=== PATIENT | female | born 1940 | race Caucasian/White ===

== ENCOUNTER 2016-11-20 11:03 | Inpatient (IN) | payer OTHER ==
[~2016-11-20] VITALS: Ht 162.6 cm; Wt 81.8 kg
[~2016-11-20 11:03] MED LIST: ALLOPURINOL100 MG PO; ASPIR 8181 M1 PO; ENDOCET 5-3251 EACH PO; ERGOCALCIF50000 UNIT PO; Ecotrin PO; LIPITOR10 MG PO; LOTENSIN20 MG PO; LOVENOX40 MG/0.4 SC; PREVACID15 MG PO; SENNA-TIME S T1 EACH PO; ZYLOPRIM100 MG PO; Zyloprim PO
[2016-11-20 12:02] LABS: BASOPHIL COUNT 0.1 K/uL (0-0.1); EOSINOPHIL (%) 1.9 % (0-5); EOSINOPHIL COUNT 0.2 K/uL (0-0.3); HEMATOCRIT 40.9 % (36.0-46.0); IMMATURE GRANULOCYTE (%) 0.5 % (0.0-0.7); IMMATURE GRANULOCYTE COUNT 0.1 K/uL; INSTRUMENT ABS NEUTROPHIL CT 6.3 K/uL; LYMPHOCYTE COUNT 3.2 K/uL (1.0-2.8); MCH 29.3 PG (29.0-34.0); MCHC 33.5 G/DL (30.0-36.0); MCV 87.6 FL (83-99); MEAN PLAT.VOLUME 12.2 uM^3 (9.5-12.4); MONOCYTE (%) 5.7 % (3-12); MONOCYTE COUNT 0.6 K/uL (0-0.8); NEUTROPHIL (%) 60.6 % (45-76); NEUTROPHIL COUNT 6.3 K/uL (1.8-6.4); PLATELET COUNT 246 K/uL (156-360); RBC DIS.WIDTH-CV 13.5 % (11.8-14.6); RBC DIS.WIDTH-SD 43.4 % (39-53); RED BLOOD COUNT 4.67 M/uL (3.80-5.20); WHITE BLOOD COUNT 10.4 K/uL (4.1-10.2)
[2016-11-20 12:10] LABS: CHLORIDE 108 mEq/L (99-109); POTASSIUM 3.6 mEq/L (3.7-5.4); SODIUM 142 mEq/L (136-147)
[2016-11-20 12:12] LABS: GLUCOSE 138 mg/dL (70-99)
[2016-11-20 12:13] LABS: ANION GAP 13 MEQ/L (2-14)
[2016-11-20 12:14] LABS: TOTAL BILIRUBIN 0.5 mg/dL (0.0-1.0)
[2016-11-20 12:16] LABS: ALKALINE PHOSPHATASE 85 IU/L (3-129); GFR ESTIMATE (CALCULATED) 36 mL/min/
[2016-11-20 12:17] LABS: UREA NITROGEN (BUN) 28 mg/dL (9-23)
[2016-11-20 12:19] LABS: LIPASE 64 U/L (1.0-51.0)
[2016-11-20 12:21] LABS: TROP-I INTERPRETATION NEGATIVE; TROPONIN-I < 0.01 ng/mL (0.0-0.30)
[2016-11-20] MEDS ORDERED: FLONASE16 G1 BOTH NARES (15:07)
[2016-11-20] MEDS ORDERED: ASPIR-LOW81 MG PO (15:07)
[2016-11-20 20:24] VITALS: BP 173/88
[2016-11-20 23:35] VITALS: BP 144/94
[2016-11-21] VITALS (12 sets, daily range): BP systolic 62–117; BP diastolic 37–88
[2016-11-21 00:17] LABS: ADD MIUA? YES; BILIRUBIN NEGATIVE; BLOOD NEGATIVE; COLOR AMBER ((YELLOW)); GLUCOSE (STRIP) NEGATIVE; KETONES NEGATIVE; LEUKOCYTES NEGATIVE; NITRITE NEGATIVE; PROTEIN (STRIP) 100; UROBILINOGEN 0.2 MG/DL (0.2-1.0)
[2016-11-21 00:30] LABS: BACTERIA RARE /HPF; EPITHELIAL CELLS RARE /HPF; MUCUS TRACE /LPF; RED BLOOD CELLS 0-5 /HPF (0-5); WHITE BLOOD CELLS 0-5 /HPF (0-5)
[2016-11-21 01:11] LABS: BASE EXCESS -7.3 mEq/L (-3 to +3); BICARBONATE 17.3 mEq/L (22-26); CARBOXY HGB 3.4 % (0-5); METHEMOGLOBIN 0.9 % (0-1.5); PCO2 32 mm Hg (35-45); PO2 60 mm Hg (80-100); pH 7.34 (7.35-7.45)
[2016-11-21 01:12] LABS: COMMENTS - BLOOD GASES A+C+; DEVICE NC; O2 FLOW 6 L/MIN; SITE RR; TOTAL RESP RATE 32 resp/min
[2016-11-21 01:34] LABS: MEAN PLAT.VOLUME 12.4 uM^3 (9.5-12.4); PLATELET COUNT 306 K/uL (156-360)
[2016-11-21 01:44] LABS: CHLORIDE 110 mEq/L (99-109); SODIUM 143 mEq/L (136-147)
[2016-11-21 01:45] LABS: POTASSIUM 4.8 mEq/L (3.7-5.4)
[2016-11-21 01:46] LABS: GLUCOSE 189 mg/dL (70-99)
[2016-11-21 01:47] LABS: ANION GAP 13 MEQ/L (2-14)
[2016-11-21 01:48] LABS: TOTAL BILIRUBIN 0.6 mg/dL (0.0-1.0)
[2016-11-21 01:49] LABS: ALKALINE PHOSPHATASE 84 IU/L (3-129)
[2016-11-21 01:50] LABS: GFR ESTIMATE (CALCULATED) 29 mL/min/; HEMATOCRIT 45.2 % (36.0-46.0); MCH 29.7 PG (29.0-34.0); RBC DIS.WIDTH-SD 45.8 % (39-53); RED BLOOD COUNT 5.02 M/uL (3.80-5.20)
[2016-11-21 01:51] LABS: UREA NITROGEN (BUN) 35 mg/dL (9-23)
[2016-11-21 01:53] LABS: WHITE BLOOD COUNT 30.3 K/uL (4.1-10.2)
[2016-11-21 05:00] LABS: METH RESISTANT S AUREUS PCR NEGATIVE (NEGATIVE)
[2016-11-21 05:08] LABS: PROBE CHECK PASS; SPECIMEN PROCESSING CONTROL PASS
[2016-11-21 08:56] LABS: BICARBONATE 18.4 mEq/L (22-26); CARBOXY HGB 1.6 % (0-5); METHEMOGLOBIN 2.1 % (0-1.5); PO2 49 mm Hg (80-100)
[2016-11-21 08:57] LABS: COMMENTS - BLOOD GASES A+C+; DEVICE 840; FI02 100 %; MECHANICAL RATE 20 resp/min; MODE A/C; PCO2 46 mm Hg (35-45); PEEP 15 CM/H20; SITE RR; TIDAL VOLUME 500 ML; TOTAL RESP RATE 20 resp/min; pH 7.21 (7.35-7.45)
[2016-11-21 11:23] LABS: BASE EXCESS -12.6 mEq/L (-3 to +3); BICARBONATE 14.5 mEq/L (22-26); CARBOXY HGB 0.8 % (0-5); METHEMOGLOBIN 1.5 % (0-1.5); PCO2 37 mm Hg (35-45); PO2 169 mm Hg (80-100)
[2016-11-21 11:24] LABS: COMMENTS - BLOOD GASES C+; DEVICE 840; FI02 100 %; MECHANICAL RATE 28 resp/min; MODE A/C; PEEP 20 CM/H20; SITE ALINE; TIDAL VOLUME 450 ML; TOTAL RESP RATE 28 resp/min
[2016-11-21 12:01] LABS: INTER. NORMALIZED RATIO 1.4; PROTHROMBIN TIME 15.3 SEC (10.2-12.9)
[2016-11-21 12:12] LABS: HEMATOCRIT 24.8 % (36.0-46.0); MCH 30.7 PG (29.0-34.0); MCHC 32.7 G/DL (30.0-36.0); MCV 93.9 FL (83-99); RBC DIS.WIDTH-CV 14.5 % (11.8-14.6); RBC DIS.WIDTH-SD 49.1 % (39-53); RED BLOOD COUNT 2.64 M/uL (3.80-5.20)
[2016-11-21 12:25] LABS: ALKALINE PHOSPHATASE 33 IU/L (3-129); ANION GAP 15 MEQ/L (2-14); CHLORIDE 116 MEQ/L (99-109); GFR ESTIMATE (CALCULATED) 39 mL/min/; GLUCOSE 271 mg/dL (70-99); LIPASE 85 U/L (1.0-51.0); SAMPLE HEMOLYSIS CHECK 0; SAMPLE ICTERIC CHECK 0; SAMPLE LIPEMIA CHECK 0; SODIUM 146 MEQ/L (136-147); TOTAL BILIRUBIN 0.5 MG/DL (0.0-1.0); UREA NITROGEN (BUN) 29 mg/dL (9-23)
[2016-11-21 12:26] LABS: POTASSIUM 3.6 MEQ/L (3.7-5.4)
[2016-11-21 12:30] LABS: BAND NEUTROPHILS 14.2 % (0-8.0); EOSINOPHIL ABS CT 0; INSTRUMENT ABS NEUTROPHIL CT 10.7 K/uL; LYMPHOCYTES 8.5 % (15.0-45.0); MYELOCYTES 1.9 %; PLAT.SUFFICIENCY ADEQUATE; SEG.NEUTROPHILS 72.6 % (46.0-76.0); SMUDGE CELLS 20.8
[2016-11-21 12:47] LABS: TROP-I INTERPRETATION POSITIVE; TROPONIN-I 10.14 ng/mL (0.0-0.30)
[2016-11-21 12:59] LABS: PLATELET COUNT 197 K/uL (156-360)
[2016-11-21 13:22] LABS: HEMATOCRIT 26.6 % (36.0-46.0); MEAN PLAT.VOLUME 12.6 uM^3 (9.5-12.4); PLATELET COUNT 219 K/uL (156-360); RBC DIS.WIDTH-CV 14.5 % (11.8-14.6); RBC DIS.WIDTH-SD 49.6 % (39-53); RED BLOOD COUNT 2.83 M/uL (3.80-5.20); WHITE BLOOD COUNT 14.1 K/uL (4.1-10.2)
[2016-11-21 14:04] LABS: ABS NEUTROPHIL COUNT 12.5; ATYPICAL LYMPHOCYTE 0.9 %; BAND NEUTROPHILS 20.3 % (0-8.0); BURR CELLS 3+; EOSINOPHIL ABS CT 0; INSTRUMENT ABS NEUTROPHIL CT 10.8 K/uL; PLAT.SUFFICIENCY ADEQUATE; POIKILOCYTOSIS 3+; SEG.NEUTROPHILS 68.1 % (46.0-76.0); SMUDGE CELLS 7.1
[2016-11-21 14:43] LABS: BASE EXCESS -16.4 mEq/L (-3 to +3); BICARBONATE 11.6 mEq/L (22-26); CARBOXY HGB 0.7 % (0-5); METHEMOGLOBIN 1.7 % (0-1.5); PCO2 35 mm Hg (35-45); PO2 132 mm Hg (80-100); SITE A-LINE; pH 7.13 (7.35-7.45)
[2016-11-21 14:44] LABS: DEVICE VENT; FI02 90 %; MECHANICAL RATE 28 resp/min; MODE A/C; PEEP 18 CM/H20; TIDAL VOLUME 450 ML; TOTAL RESP RATE 28 resp/min
== END 2016-11-22 11:40 | DRG 329 ==
LOC: EME → EDBD 11:03 → 4WEST 17:26 → EDOF 17:26 → 4EAST 17:26 → ENRESERV 17:27 → 4EAST 20:11 → ENRESERV 11-21 02:56 → 4EAST 11-21 02:59 → 4WEST 11-21 03:32
PROVIDERS: Emergency Medicine; Internal Medicine; Internal Medicine Critical Care Medicine
PROC: 0DBK0ZZ Excision of Ascending Colon, Open Approach (ICD-10-PCS; principal; 2016-11-21)
PROC: 02HV33Z Insertion of Infusion Device into Superior Vena Cava, Percutaneous Approach (ICD-10-PCS; principal; 2016-11-21)
PROC: 0DBB0ZZ Excision of Ileum, Open Approach (ICD-10-PCS; principal; 2016-11-21)
PROC: 04C50ZZ Extirpation of Matter from Superior Mesenteric Artery, Open Approach (ICD-10-PCS; principal; 2016-11-21)
PROC: 0DTH0ZZ Resection of Cecum, Open Approach (ICD-10-PCS; principal; 2016-11-21)
PROC: 03HY32Z Insertion of Monitoring Device into Upper Artery, Percutaneous Approach (ICD-10-PCS; principal; 2016-11-21)
DX: K55.032 Diffuse acute (reversible) ischemia of large intestine (principal); J69.0 Pneumonitis due to inhalation of food and vomit; J96.01 Acute respiratory failure with hypoxia; N17.9 Acute kidney failure, unspecified; A41.9 Sepsis, unspecified organism; J90 Pleural effusion, not elsewhere classified; E87.2 Acidosis; A08.4 Viral intestinal infection, unspecified; K55.012 Diffuse acute (reversible) ischemia of small intestine; K55.022 Diffuse acute infarction of small intestine; I12.9 Hypertensive chronic kidney disease with stage 1 through stage 4 chronic kidney disease, or unspecified chronic kidney disease; Z82.49 Family history of ischemic heart disease and other diseases of the circulatory system; K55.041 Focal (segmental) acute infarction of large intestine; K63.89 Other specified diseases of intestine; E78.5 Hyperlipidemia, unspecified; K21.9 Gastro-esophageal reflux disease without esophagitis; L40.9 Psoriasis, unspecified; E87.6 Hypokalemia; R41.0 Disorientation, unspecified; Z86.73 Personal history of transient ischemic attack (TIA), and cerebral infarction without residual deficits; I25.10 Atherosclerotic heart disease of native coronary artery without angina pectoris; K58.9 Irritable bowel syndrome, unspecified; K44.9 Diaphragmatic hernia without obstruction or gangrene; R74.8 Abnormal levels of other serum enzymes; K57.30 Diverticulosis of large intestine without perforation or abscess without bleeding; Z81.8 Family history of other mental and behavioral disorders; K76.0 Fatty (change of) liver, not elsewhere classified; R00.0 Tachycardia, unspecified; N18.2 Chronic kidney disease, stage 2 (mild)
CPT/HCPCS: 36600; 71010; 71250; 74176; 76705; 80053; 81003; 82803; 83605; 83690; 83880; 84132 91; 84484; 85025; 85025 91; 85027; 85379; 85610; 87040; 87070; 87205; 87641; 88304; 88307; 93005; 94002; 94003; 99281; 99285; C1725; C1751; C9113; J0171; J0330; J1100; J1170; J1644; J2250; J2270; J2405; J2543; J2710; J3010; J3480; J7030; J7050; J7070; P9045